=== PATIENT | female | born 1965 | race Caucasian/White ===

== ENCOUNTER 2017-07-12 14:10 | Emergency (ER) | payer SELFPAY ==
[2017-07-12] MEDS ORDERED: predniSONE 10 MG TAB ONE (14:58)
[2017-07-12] MEDS ORDERED: predniSONE 20 MG TAB ONE (14:58)
== END 2017-07-12 15:05 | disposition home or self-care (01) ==
LOC: NAV ERS 14:10
DX: L23.9 Allergic contact dermatitis, unspecified cause (principal); I10 Essential (primary) hypertension; J44.9 Chronic obstructive pulmonary disease, unspecified; F17.210 Nicotine dependence, cigarettes, uncomplicated
CPT/HCPCS: 99282; J7506; J7512

== ENCOUNTER 2017-09-15 12:22 | Emergency (ER) | payer SELFPAY ==
--- NOTE | 2017-09-15 13:20 | RAD ---
RIGHT KNEE FOUR VIEW: HISTORY: Hit knee on a bunk bed on . Injury. COMPARISON: None. FINDINGS: There is a large joint effusion. There is severe medial compartment narrowing. No displaced fractur e is appreciated. IMPRESSION: 1. Large joint effusion, greater than expected for the amount of degenerative change. Internal dera ngement is suspected versus a trabecular micro-impaction fracture. MRI is recommended. 2. Severe medial compartment degenerative disease with narrowing, sclerosis, and osteophyte formatio n. POS: [facility]
== END 2017-09-15 13:20 | disposition home or self-care (01) ==
LOC: NAV ERS 12:22
DX: S83.91XA Sprain of unspecified site of right knee, initial encounter (principal); J44.9 Chronic obstructive pulmonary disease, unspecified; F17.210 Nicotine dependence, cigarettes, uncomplicated; X50.9XXA Other and unspecified overexertion or strenuous movements or postures, initial encounter

== ENCOUNTER 2017-10-11 15:28 | Emergency (ER) | payer BC, OTHER ==
[2017-10-11 16:14] LABS: #Basophils 0.1 thou/uL (0.0-0.2); #Eosinphils 0.2 thou/uL (0.0-0.7); #Lymphocytes 2.2 thou/uL (1.20-3.40); #Monocytes 0.5 thou/uL (0.11-0.59); #Neutrophils 5.6 thou/uL (1.40-6.50); %Basophils 1.4 % (0.0-1.0); %Eosinophils 2.2 % (0.0-10.0); %Lymphocytes 25.6 % (21.0-51.0); %Monocytes 6.3 % (0.0-10.0); %Neutrophils 64.5 % (42.0-75.0); Hemoglobin 15.6 g/dL (12.0-16.0); Mean Corpuscular HGB CONC 33.1 g/dL (32.0-36.0); Mean Corpuscular Hemoglobin 30.4 pg (27.0-31.0); Mean Corpuscular Volume 91.7 fl (81.0-99.0); Mean Platelet Volume 8.7 fL (7.4-10.4); Platelet Count 273 thou/uL (130-400); RBC Distribution Width 11.9 % (11.5-14.5); Red Blood Cell (RBC) Count 5.15 mill/uL (4.20-5.40); White Blood Cell (WBC) Count 8.7 thou/uL (4.8-10.8)
[2017-10-11] MEDS ORDERED: Ondansetron HCl/PF 4 MG/2 ML Vial ONE (16:14)
[2017-10-11] MEDS ORDERED: Sodium Chloride 0.9% 1,000 ML ONE (16:14)
[2017-10-11 16:16] LABS: Bilirubin Negative (Negative); Blood, Urine Trace (Negative); Clarity Clear (Clear); Glucose, Urine (Dipstick) Negative (Negative); Leukocyte Small (Negative); Nitrite Negative (Negative); Protein, Urine (Dipstick) Negative (Neg-Trace)
[2017-10-11 16:17] LABS: Specific Gravity, Urine 1.024 (1.002-1.036)
[2017-10-11 16:35] LABS: ALT (SGPT) 22 U/L (8-55); AST (SGOT) 20 U/L (5-34); Albumin 4.4 g/dL (3.5-5.0); Alkaline Phosphatase 78 U/L (40-150); Anion Gap 16 mmol/L (10-20); BUN (Urea Nitrogen) 16 mg/dL (9.8-20.1); Bilirubin, Total 0.3 mg/dL (0.2-1.2); Calc. Creatinine Clearance 0 mL/min (70-130); Calcium 9.7 mg/dL (7.8-10.44); Carbon Dioxide 23 mmol/L (22-29); Chloride 108 mmol/L (98-107); Estimated GFR-MDRD 81; Globulin 3.1 g/dL (2.4-3.5); Glucose 115 mg/dL (70-105); Lipase 94 U/L (8-78); Potassium 3.7 mmol/L (3.5-5.1); Protein, Total 7.5 g/dL (6.0-8.3); Sodium 143 mmol/L (136-145)
[2017-10-11 16:37] LABS: Bacteria/HPF 2+ HPF (None Seen); RBC/HPF 0-3 HPF (0-3); WBC/HPF 0-3 HPF (0-3)
[2017-10-11] MEDS ORDERED: cefTRIAXone\\ROCEPHIN 1 GM VIAL ONE (16:45)
== END 2017-10-11 17:17 | disposition home or self-care (01) ==
LOC: NAV ERS 15:28
DX: N39.0 Urinary tract infection, site not specified (principal); R11.2 Nausea with vomiting, unspecified; M79.1 Myalgia; J44.9 Chronic obstructive pulmonary disease, unspecified; F17.210 Nicotine dependence, cigarettes, uncomplicated; Z79.899 Other long term (current) drug therapy
CPT/HCPCS: 80053; 81003; 81015; 83690; 85025; 87086; 96361; 96374; 96375; J0696; J2405; J7050

== ENCOUNTER 2017-12-15 09:26 | Emergency (ER) | payer BC | END 2017-12-15 10:41 | LOC: NAV ERS 09:26 | DX: J20.9 Acute bronchitis, unspecified (principal); J32.9 Chronic sinusitis, unspecified; J44.9 Chronic obstructive pulmonary disease, unspecified; F17.210 Nicotine dependence, cigarettes, uncomplicated | CPT/HCPCS: 99282 ==

== ENCOUNTER 2018-01-20 14:18 | Emergency (ER) | payer BC ==
--- NOTE | 2018-01-20 14:53 | RAD ---
4 VIEWS RIGHT KNEE: Date: 01/20/18 COMPARISON: 09/15/17. HISTORY: Pain. Patient tripped this morning. FINDINGS: No significant joint effusion. Stable mild degenerative change at patellofemoral compartment and medi al compartment. No fracture or malalignment. IMPRESSION: No post-traumatic change. POS: [facility]
== END 2018-01-20 15:35 | disposition home or self-care (01) ==
LOC: NAV ERS 14:18
DX: S86.911A Strain of unspecified muscle(s) and tendon(s) at lower leg level, right leg, initial encounter (principal); J02.9 Acute pharyngitis, unspecified; J44.9 Chronic obstructive pulmonary disease, unspecified; F17.210 Nicotine dependence, cigarettes, uncomplicated; W01.0XXA Fall on same level from slipping, tripping and stumbling without subsequent striking against object, initial encounter
CPT/HCPCS: 87081; 87430

== ENCOUNTER 2018-02-02 12:29 | Emergency (ER) | payer BC ==
[2018-02-02] MEDS ORDERED: Ketorolac Tromethamine 60 MG/2 ML VIAL ONE (13:52)
[2018-02-02 14:02] LABS: #Basophils 0.1 thou/uL (0.0-0.2); #Eosinphils 0.1 thou/uL (0.0-0.7); #Lymphocytes 1.9 thou/uL (1.20-3.40); #Monocytes 0.5 thou/uL (0.11-0.59); #Neutrophils 5.7 thou/uL (1.40-6.50); %Basophils 1.1 % (0.0-1.0); %Lymphocytes 23.4 % (21.0-51.0); %Monocytes 5.4 % (0.0-10.0); %Neutrophils 69.1 % (42.0-75.0); Hemoglobin 16.4 g/dL (12.0-16.0); Mean Corpuscular HGB CONC 32.7 g/dL (32.0-36.0); Mean Corpuscular Hemoglobin 29.9 pg (27.0-31.0); Mean Corpuscular Volume 91.4 fl (81.0-99.0); Mean Platelet Volume 7.7 fL (7.4-10.4); Platelet Count 355 thou/uL (130-400); RBC Distribution Width 11.3 % (11.5-14.5); Red Blood Cell (RBC) Count 5.48 mill/uL (4.20-5.40); White Blood Cell (WBC) Count 8.2 thou/uL (4.8-10.8)
[2018-02-02 14:15] LABS: ALT (SGPT) 22 U/L (8-55); AST (SGOT) 18 U/L (5-34); Albumin 4.9 g/dL (3.5-5.0); Alkaline Phosphatase 84 U/L (40-150); Anion Gap 15 mmol/L (10-20); BUN (Urea Nitrogen) 15 mg/dL (9.8-20.1); Bilirubin, Total 0.4 mg/dL (0.2-1.2); Calc. Creatinine Clearance 0 mL/min (70-130); Calcium 9.9 mg/dL (7.8-10.44); Carbon Dioxide 23 mmol/L (22-29); Chloride 105 mmol/L (98-107); Estimated GFR-MDRD Greater than 90; Globulin 2.9 g/dL (2.4-3.5); Glucose 79 mg/dL (70-105); Potassium 4.2 mmol/L (3.5-5.1); Protein, Total 7.8 g/dL (6.0-8.3); Sodium 139 mmol/L (136-145)
[2018-02-02 14:22] LABS: CKMB 2.1 ng/mL (0-6.6); Troponin I Less than 0.010 ng/mL (< 0.028)
--- NOTE | 2018-02-02 14:24 | RAD ---
PORTABLE AP CHEST XRAY: DATE: 02/02/18. HISTORY: Chest pain. Worsening symptoms of back pain and dyspnea since a fall on Wednesday. COMPARISON: None available. FINDINGS: The cardiac silhouette and pulmonary vasculature are within normal limits. The lungs are clear. Ernesto cified granuloma overlie the lateral left upper lung zone. The osseous structures are intact. IMPRESSION: No acute cardiopulmonary process. POS: [facility]
--- NOTE | 2018-02-02 14:47 | CT ---
NONCONTRAST CT HEAD: Date: 02-02-18 History: Headaches after fall at work on Wednesday. Comparison: None available. FINDINGS: A few subtle low density areas are seen in the left periventricular white matter which are nonspecifi c but probable reflect mild chronic small vessel ischemic changes. There is no evidence of an acute i nfarction, hemorrhage, mass effect, or midline shift. The ventricular system is normal in size, shape , and position. No depressed calvarial fracture is seen. There is minimal mucosal thickening in the right maxillary a ntrum. The remainder of the visualized paranasal sinuses and mastoid air cells are clear. IMPRESSION: No acute intracranial abnormality is demonstrated. POS: [facility]
--- NOTE | 2018-02-02 15:13 | CT ---
CERVICAL SPINE CT SCAN WITHOUT IV CONTRAST: HISTORY: A 52-year-old female with a history of neck pain following a fall at work on Wednesday with headaches. FINDINGS: No evidence for acute fracture or facet dislocation. There are some minimal disk-osteophytosis mccoy es and facet arthrosis changes. No evidence for other significant acute process. IMPRESSION: Evidence for cervical spondylosis. No evidence for acute fracture or facet dislocation. POS: [facility]
--- NOTE | 2018-02-02 15:17 | CT ---
CT LUMBAR SPINE WITHOUT IV CONTRAST: DATE: 02/02/18. HISTORY: Upper chest and back pain after a fall on Wednesday. Pain when walking. TECHNIQUE: Contiguous axial CT images are obtained through the lumbar spine at the T12-L1 level to the upper sac rum. Sagittal and coronal reformatted images are provided. FINDINGS: Postsurgical changes related to cholecystectomy are noted. Vascular calcifications are seen in the a bdominal aorta and in the iliac arteries. There is a nonobstructing approximately 6 mm calculus in the superior pole left kidney. The vertebral body heights are within normal limits. There is no evidence of a fracture. There is t race anterolisthesis of L4 on L5 likely attributable to prominent facet degenerative changes at this level. There are also prominent facet degenerative changes of the lumbosacral junction without anter olisthesis. There is no evidence of a fracture. There is minimal disk bulge at the L4-5 level which results in slight effacement of the ventral aspec t of the thecal sac. There is minimal right-sided neural foraminal narrowing at this level. The lef t neural foramen is patent. No additional intradural or extradural defect is identified in the central spinal canal and neural fo ramen at the remaining levels of the lumbar spine are widely patent. IMPRESSION: 1. Spondylosis at the L4-5 level with trace anterolisthesis of L4 on L5. 2. No fracture is seen involving the lumbar spine. 3. Bilateral sacroiliac joint osteoarthritis. 4. Nonobstructing left renal calculus. POS: [facility]
== END 2018-02-02 15:40 | disposition home or self-care (01) ==
LOC: NAV ERS 12:29
DX: M62.838 Other muscle spasm (principal); J44.9 Chronic obstructive pulmonary disease, unspecified; F17.210 Nicotine dependence, cigarettes, uncomplicated; W19.XXXA Unspecified fall, initial encounter
CPT/HCPCS: 70450; 71045; 72125; 72131; 80053; 82553; 83880; 84484; 85025; 93005; 94760; 96372; J1885

== ENCOUNTER 2018-06-23 13:09 | Emergency (ER) | payer BC ==
[2018-06-23] MEDS ORDERED: Ketorolac Tromethamine 60 MG/2 ML VIAL ONE (13:30)
== END 2018-06-23 13:40 | disposition home or self-care (01) ==
LOC: NAV ERS 13:09
DX: M54.5 Low back pain (principal); J44.9 Chronic obstructive pulmonary disease, unspecified; F17.210 Nicotine dependence, cigarettes, uncomplicated; G43.909 Migraine, unspecified, not intractable, without status migrainosus; X50.0XXA Overexertion from strenuous movement or load, initial encounter; Z79.899 Other long term (current) drug therapy
CPT/HCPCS: 96372; J1885

== ENCOUNTER 2018-09-08 13:20 | Emergency (ER) | payer BC ==
[2018-09-08] MEDS ORDERED: Acetaminophen 325 MG TAB ONE (13:48)
--- NOTE | 2018-09-08 14:28 | RAD ---
RIGHT KNEE 4 VIEWS: Date: 09/08/18 HISTORY: Pain. COMPARISON: 01/20/18. FINDINGS: Stable mild to moderate degenerative change in the medial compartment. Stable mild degenerative mccoy e of patellofemoral compartment. Small suprapatellar effusion. No fracture or malalignment. IMPRESSION: Small suprapatellar fusion, similar to the previous examination. No definite fracture. Stable bicompa rtmental degenerative change. Additional imaging if clinically warranted. POS: [facility]
== END 2018-09-08 14:40 | disposition home or self-care (01) ==
LOC: NAV ERS 13:20
DX: M25.561 Pain in right knee (principal); J44.9 Chronic obstructive pulmonary disease, unspecified; F17.210 Nicotine dependence, cigarettes, uncomplicated

== ENCOUNTER 2020-07-23 14:52 | Emergency (ER) | payer BC, SELFPAY ==
[2020-07-23] MEDS ORDERED: Ketorolac Tromethamine 60 MG/2 ML VIAL ONE (15:30)
--- NOTE | 2020-07-23 15:42 | RAD ---
Exam: Left knee 4 views: HISTORY: Bilateral knee pain for several weeks COMPARISON: None FINDINGS: Some narrowing of the medial compartment with mild hypertrophic osteophytosis. No evidence for fracture, dislocation, or other significant acute osseous abnormality. IMPRESSION: Minimal degenerative and osteoarthrosis change.
== END 2020-07-23 16:25 | disposition home or self-care (01) ==
LOC: NAV ERS 14:52
DX: S83.92XA Sprain of unspecified site of left knee, initial encounter (principal); J44.9 Chronic obstructive pulmonary disease, unspecified; F17.210 Nicotine dependence, cigarettes, uncomplicated; W18.30XA Fall on same level, unspecified, initial encounter
CPT/HCPCS: 96372; 99406; J1885

== ENCOUNTER 2020-08-26 17:25 | Emergency (ER) | payer SELFPAY ==
[2020-08-27 12:26] LABS: SARS-CoV-2 MS2 Positive; SARS-CoV-2 N Gene Negative; SARS-CoV-2 S Gene Negative; SARS-CoV-2 by NAA Not Detected (NotDetected); SARS-CoV-2 orf1ab Negative
== END 2020-08-26 17:54 | disposition home or self-care (01) ==
LOC: NAV ERS 17:25
DX: Z20.828 Contact with and (suspected) exposure to other viral communicable diseases (principal)
CPT/HCPCS: 87635; 99283; U0003

== ENCOUNTER 2020-11-13 12:08 | Emergency (ER) | payer OTHER, SELFPAY ==
--- NOTE | 2020-11-13 12:54 | RAD ---
EXAM: 4 views of the right knee HISTORY: Knee pain COMPARISON: 09/08/2018 FINDINGS: A small knee effusion is seen. There is no evidence of acute fracture or dislocation. Moder ate tricompartmental osteophyte formation is seen consistent with osteoarthritis.. No soft tissue swelling is present. IMPRESSION: Moderate right knee osteoarthritis
== END 2020-11-13 13:12 | disposition home or self-care (01) ==
LOC: NAV ERS 12:08
DX: S80.01XA Contusion of right knee, initial encounter (principal); J44.9 Chronic obstructive pulmonary disease, unspecified; F17.210 Nicotine dependence, cigarettes, uncomplicated; W00.0XXA Fall on same level due to ice and snow, initial encounter

== ENCOUNTER 2021-04-11 11:21 | Emergency (ER) | payer SELFPAY ==
[2021-04-12 12:40] LABS: SARS-CoV-2 PCR by NAA DETECTED (NotDetected)
== END 2021-04-11 12:40 | disposition home or self-care (01) ==
LOC: NAV ERS 11:21
DX: U07.1 COVID-19 (principal); J44.9 Chronic obstructive pulmonary disease, unspecified; L40.9 Psoriasis, unspecified; F17.210 Nicotine dependence, cigarettes, uncomplicated
CPT/HCPCS: 99284; U0003; U0005

== ENCOUNTER 2021-09-15 11:05 | Emergency (ER) | payer OTHER, SELFPAY ==
[2021-09-16 15:08] LABS: SARS-CoV-2 PCR by NAA Not Detected (NotDetected)
== END 2021-09-15 12:52 | disposition home or self-care (01) ==
LOC: NAV ERS 11:05
DX: S23.41XA Sprain of ribs, initial encounter (principal); J06.9 Acute upper respiratory infection, unspecified; J44.9 Chronic obstructive pulmonary disease, unspecified; F17.210 Nicotine dependence, cigarettes, uncomplicated; Z20.822 Contact with and (suspected) exposure to COVID-19; W01.0XXA Fall on same level from slipping, tripping and stumbling without subsequent striking against object, initial encounter
CPT/HCPCS: 71046; U0003; U0005

== ENCOUNTER 2022-08-26 00:19 | Emergency (ER) | payer SELFPAY ==
[2022-08-26 00:58] LABS: #Basophils 0.1 thou/uL (0.0-0.2); #Eosinphils 0.2 thou/uL (0.0-0.7); #Lymphocytes 2.3 thou/uL (1.20-3.40); #Monocytes 0.5 thou/uL (0.11-0.59); #Neutrophils 4.1 thou/uL (1.40-6.50); %Basophils 1.1 % (0.0-1.0); %Monocytes 7.1 % (0.0-10.0); %Neutrophils 56.9 % (42.0-75.0); Hemoglobin 15.1 g/dL (12.0-16.0); Mean Corpuscular HGB CONC 33.7 g/dL (32.0-36.0); Mean Corpuscular Volume 94.9 fl (78.0-98.0); Mean Platelet Volume 7.8 fL (7.4-10.4); Platelet Count 272 10x3/uL (130-400); RBC Distribution Width 11.7 % (11.5-14.5); Red Blood Cell (RBC) Count 4.73 mill/uL (4.20-5.40); White Blood Cell (WBC) Count 7.1 10x3/uL (4.8-10.8)
[2022-08-26] MEDS ORDERED: Ketorolac Tromethamine 30 MG/ML VIAL ONE (01:13)
[2022-08-26 01:17] LABS: CK (CPK) 126 U/L (29-168); Lipase 20 U/L (8-78)
[2022-08-26 01:42] LABS: ALT (SGPT) 16 U/L (8-55); AST (SGOT) 15 U/L (5-34); Albumin 4.2 g/dL (3.5-5.0); Alkaline Phosphatase 62 U/L (40-110); Anion Gap 15 mmol/L (10-20); BUN (Urea Nitrogen) 21 mg/dL (9.8-20.1); Bilirubin, Total 0.3 mg/dL (0.2-1.2); Calc. Creatinine Clearance 0 mL/min (70-130); Calcium 9.3 mg/dL (7.8-10.44); Carbon Dioxide 22 mmol/L (22-29); Chloride 108 mmol/L (98-107); Estimated GFR 101; Globulin 2.6 g/dL (2.4-3.5); Potassium 3.6 mmol/L (3.5-5.1); Protein, Total 6.8 g/dL (6.0-8.3); Sodium 141 mmol/L (136-145)
[2022-08-26 01:46] LABS: Glucose 107 mg/dL (70-105)
== END 2022-08-26 02:30 | disposition home or self-care (01) ==
LOC: NAV ERS 00:19
DX: R07.89 Other chest pain (principal); J44.9 Chronic obstructive pulmonary disease, unspecified; F17.210 Nicotine dependence, cigarettes, uncomplicated
CPT/HCPCS: 36415; 71046; 80053; 82550; 83690; 84484; 85025; 93005; 96372; J1885

== ENCOUNTER 2023-10-03 21:25 | Emergency (ER) | payer SELFPAY ==
[2023-10-03] MEDS ORDERED: HYDROcodone/Acetaminophen 10/325 mg Tablet ONE (22:05)
[2023-10-03] MEDS ORDERED: Ibuprofen 800 MG TAB ONE (22:05)
== END 2023-10-03 23:24 | disposition home or self-care (01) ==
LOC: NAV ERS 21:25
DX: S20.20XA Contusion of thorax, unspecified, initial encounter (principal); M54.50 Low back pain, unspecified; M25.531 Pain in right wrist; F17.210 Nicotine dependence, cigarettes, uncomplicated; J44.9 Chronic obstructive pulmonary disease, unspecified; W01.0XXA Fall on same level from slipping, tripping and stumbling without subsequent striking against object, initial encounter
CPT/HCPCS: 71111; 72100

== ENCOUNTER 2024-06-03 18:09 | Emergency (ER) | payer OTHER ==
[2024-06-03] MEDS ORDERED: Ketorolac Tromethamine 60 MG/2 ML VIAL ONE (19:42)
== END 2024-06-03 20:07 | disposition home or self-care (01) ==
LOC: NAV ERS 18:09
DX: S22.42XA Multiple fractures of ribs, left side, initial encounter for closed fracture (principal); S70.02XA Contusion of left hip, initial encounter; J44.9 Chronic obstructive pulmonary disease, unspecified; F17.210 Nicotine dependence, cigarettes, uncomplicated; W01.0XXA Fall on same level from slipping, tripping and stumbling without subsequent striking against object, initial encounter; Y92.481 Parking lot as the place of occurrence of the external cause
CPT/HCPCS: 96372; 99283; J1885

== ENCOUNTER 2025-08-14 14:45 | Emergency (ER) | payer OTHER, SELFPAY ==
[2025-08-14] MEDS ORDERED: Acetaminophen 500 MG TAB ONE (16:06)
[2025-08-14] MEDS ORDERED: Naproxen 500 MG TAB ONE (16:07)
== END 2025-08-14 16:47 | disposition home or self-care (01) ==
LOC: NAV ERS 14:45
DX: S93.402A Sprain of unspecified ligament of left ankle, initial encounter (principal); S70.02XA Contusion of left hip, initial encounter; S40.012A Contusion of left shoulder, initial encounter; S50.311A Abrasion of right elbow, initial encounter; J44.9 Chronic obstructive pulmonary disease, unspecified; R03.0 Elevated blood-pressure reading, without diagnosis of hypertension; F17.210 Nicotine dependence, cigarettes, uncomplicated; Z79.51 Long term (current) use of inhaled steroids; W01.0XXA Fall on same level from slipping, tripping and stumbling without subsequent striking against object, initial encounter; Y93.01 Activity, walking, marching and hiking
CPT/HCPCS: 29515; 70450; 72125; 72170